=== PATIENT | female | born 1950 | race Caucasian/White ===

== ENCOUNTER 2025-01-14 22:42 | Emergency (ER) | payer MEDICARE ==
[2025-01-14] MEDS ORDERED: traMADol 50 MG Tab PO ONE (22:43)
[2025-01-14 23:36] LABS: BASOPHILS ABSOLUTE AUTO 0.1 x10-3/uL (0.0-0.1); BASOPHILS PERCENT AUTO 0.6 % (0.2-1.5); EOSINOPHILS ABSOLUTE AUTO 0.3 x10-3/uL (0.0-0.8); EOSINOPHILS PERCENT AUTO 2.5 % (0.6-8.1); HEMATOCRIT 41.5 % (34.2-48.2); HEMOGLOBIN 14.1 g/dL (11.4-15.5); LYMPHOCYTES PERCENT AUTO 16.8 % (18.4-52.1); MEAN CORPUSCULAR HEMOGLOBIN 29.3 pg (23.9-33.9); MEAN CORPUSCULAR HGB CONC 34.1 g/dL (31.9-34.8); MEAN PLATELET VOLUME 8.9 fL (7.1-12.4); MONOCYTES ABSOLUTE AUTO 1.1 x10-3/uL (0.3-1.0); MONOCYTES PERCENT AUTO 8.9 % (4.4-15.7); NEUTROPHILS ABSOLUTE AUTO 8.5 x10-3/uL (1.5-6.3); NEUTROPHILS PERCENT AUTO 71.2 % (30.8-76.2); PLATELET COUNT,PLT 222 x10(3)uL (151-488); RED BLOOD CELL COUNT 4.83 x10(6)uL (3.60-5.20); WHITE BLOOD CELL COUNT,WBC 11.9 x10-3/uL (3.0-10.3)
[2025-01-14] MEDS: Pantoprazole 40 MG Vial IVPUSH ONE (23:36)
[2025-01-14 23:41] LABS: BLOOD UREA NITROGEN,BUN 19 mg/dL (7-18); BUN/CREATININE RATIO 17.3 (9-20); CALCIUM 9.6 mg/dL (8.6-10.2); CARBON DIOXIDE,CO2 26 mmol/L (21-32); CHLORIDE,CL 103 mmol/L (100-110); CREATININE 1.1 mg/dL (0.55-1.02); ESTIMATED GFR 52 mL/min (>60); GLUCOSE RANDOM 87 mg/dL (80-116); POTASSIUM,K 4.4 mmol/L (3.5-5.3); SODIUM,NA 138 mmol/L (135-145)
[2025-01-14 23:47] LABS: A/G RATIO 0.9; ALANINE AMINOTRANSFERASE,ALT 26 U/L (12-36); ALBUMIN 3.4 g/dL (3.2-4.6); ALKALINE PHOSPHATASE 104 IU/L (56-112); ASPARTATE AMNIOTRANSFERASE,AST 25 IU/L (5-25); BILIRUBIN TOTAL 0.5 mg/dL (0.1-1.3); PROTEIN TOTAL,TP 7.2 g/dL (6.0-8.0)
[2025-01-15] MEDS: Sodium Chloride 0.9% 1,000 ML IV SCH (01:00)
[2025-01-15 01:05] LABS: C-REACTIVE PROTEIN 5.56 mg/dL (<0.50); LIPASE > 1500 U/L (16-77)
[2025-01-15] MEDS: Iopamidol 755 Mg/ML 100 ML Bottle IV ONE (01:10)
[2025-01-15] MEDS ORDERED: Naloxone 0.4 MG/ML SDV IVPUSH PRN (02:40)
[2025-01-15] MEDS: HYDROmorphone 2 MG/ML SDV IVPUSH ONE ×2 (02:45→06:20)
[2025-01-15] MEDS: Lactated Ringers 1,000 ML IV SCH (03:11)
[2025-01-15] MEDS: Sodium Chloride 0.9% 10 ML Syringe FLUSH PRN (06:21)
[2025-01-15 09:24] VITALS: BP 116/49; PULSE 79
== END 2025-01-15 08:51 ==
LOC: FB.ED 22:42
DX: K85.81 Other acute pancreatitis with uninfected necrosis (principal); K21.9 Gastro-esophageal reflux disease without esophagitis; Z79.899 Other long term (current) drug therapy; Z79.82 Long term (current) use of aspirin
CPT/HCPCS: 71046; 74177; 80053; 83690; 85025; 86140; 93010; 96361; 96374; 96375; 96376; 99285; A9270; J1171; J2470; J7030; J7120; Q9967

== ENCOUNTER 2025-03-11 09:06 | Emergency (ER) | payer MEDICARE ==
[2025-03-11] MEDS: HYDROmorphone 2 MG/ML SDV IVPUSH ONE (09:45)
[2025-03-11 09:55] LABS: BASOPHILS PERCENT AUTO 0.5 % (0.2-1.5); EOSINOPHILS ABSOLUTE AUTO 0.2 x10-3/uL (0.0-0.8); EOSINOPHILS PERCENT AUTO 2.4 % (0.6-8.1); HEMATOCRIT 29.1 % (34.2-48.2); HEMOGLOBIN 9.7 g/dL (11.4-15.5); LYMPHOCYTES ABSOLUTE AUTO 0.9 x10-3/uL (1.0-4.4); LYMPHOCYTES PERCENT AUTO 9.1 % (18.4-52.1); MEAN CORPUSCULAR HGB CONC 33.2 g/dL (31.9-34.8); MEAN CORPUSCULAR VOLUME 87.3 fL (76.7-100.5); MEAN PLATELET VOLUME 8.4 fL (7.1-12.4); MONOCYTES ABSOLUTE AUTO 0.5 x10-3/uL (0.3-1.0); NEUTROPHILS ABSOLUTE AUTO 7.8 x10-3/uL (1.5-6.3); PLATELET COUNT,PLT 403 x10(3)uL (151-488); RED BLOOD CELL COUNT 3.33 x10(6)uL (3.60-5.20); RED CELL DISTRIBUTION WIDTH 14.9 % (12.3-16.5); WHITE BLOOD CELL COUNT,WBC 9.4 x10-3/uL (3.0-10.3)
[2025-03-11 09:59] LABS: BLOOD UREA NITROGEN,BUN 16 mg/dL (7-18); CARBON DIOXIDE,CO2 30 mmol/L (21-32); CHLORIDE,CL 99 mmol/L (100-110); ESTIMATED GFR 59 mL/min (>60); GLUCOSE RANDOM 84 mg/dL (80-116); POTASSIUM,K 3.3 mmol/L (3.5-5.3); SODIUM,NA 135 mmol/L (135-145)
[2025-03-11 10:05] LABS: A/G RATIO 0.8; ALANINE AMINOTRANSFERASE,ALT 34 U/L (12-36); ALBUMIN 2.9 g/dL (3.2-4.6); ALKALINE PHOSPHATASE 130 IU/L (56-112); ASPARTATE AMNIOTRANSFERASE,AST 19 IU/L (5-25); BILIRUBIN TOTAL 0.6 mg/dL (0.1-1.3); PROTEIN TOTAL,TP 6.4 g/dL (6.0-8.0)
[2025-03-11] MEDS: Iopamidol 755 Mg/ML 100 ML Bottle IV SCH (10:34)
[2025-03-11 11:28] VITALS: BP 145/68; PULSE 88
== END 2025-03-11 11:25 | disposition home or self-care (01) ==
LOC: FB.ED 09:06
DX: C25.9 Malignant neoplasm of pancreas, unspecified (principal); Z79.899 Other long term (current) drug therapy; Z79.82 Long term (current) use of aspirin
CPT/HCPCS: 36415; 74177; 80053; 83605; 83690; 85025; 87040; 96374; 99284; 99284-25; J1171; Q9967

== ENCOUNTER 2025-04-14 10:45 | Emergency (ER) | payer MEDICARE ==
[2025-04-14 11:25] VITALS: BP 125/59; PULSE 72
== END 2025-04-14 11:45 | disposition home or self-care (01) ==
LOC: FB.ED 10:45
DX: K59.00 Constipation, unspecified (principal); Z79.82 Long term (current) use of aspirin; Z79.899 Other long term (current) drug therapy
CPT/HCPCS: 74019; 99283

== ENCOUNTER 2025-04-28 10:10 | Emergency (ER) | payer MEDICARE ==
[2025-04-28] MEDS: HYDROmorphone 2 MG/ML SDV IVPUSH ONE ×2 (10:48→11:44)
[2025-04-28 10:49] LABS: BASOPHILS ABSOLUTE AUTO 0.0 x10-3/uL (0.0-0.1); BASOPHILS PERCENT AUTO 0.4 % (0.2-1.5); EOSINOPHILS ABSOLUTE AUTO 0.0 x10-3/uL (0.0-0.8); EOSINOPHILS PERCENT AUTO 0.0 % (0.6-8.1); LYMPHOCYTES ABSOLUTE AUTO 1.0 x10-3/uL (1.0-4.4); LYMPHOCYTES PERCENT AUTO 12.2 % (18.4-52.1); MEAN PLATELET VOLUME 7.9 fL (7.1-12.4); MONOCYTES ABSOLUTE AUTO 0.8 x10-3/uL (0.3-1.0); MONOCYTES PERCENT AUTO 10.1 % (4.4-15.7); NEUTROPHILS ABSOLUTE AUTO 6.3 x10-3/uL (1.5-6.3); NEUTROPHILS PERCENT AUTO 77.3 % (30.8-76.2); PLATELET COUNT,PLT 315 x10(3)uL (151-488); RED BLOOD CELL COUNT 2.99 x10(6)uL (3.60-5.20); RED CELL DISTRIBUTION WIDTH 15.2 % (12.3-16.5); WHITE BLOOD CELL COUNT,WBC 8.1 x10-3/uL (3.0-10.3)
[2025-04-28] MEDS: Ondansetron 4 MG/2 ML SDV IVPUSH ONE (10:49)
[2025-04-28 10:58] LABS: BLOOD UREA NITROGEN,BUN 11 mg/dL (7-18); CARBON DIOXIDE,CO2 29 mmol/L (21-32); CHLORIDE,CL 99 mmol/L (100-110); CREATININE 0.8 mg/dL (0.55-1.02); EST CRCL DRUG DOSING (CG) 52.47 mL/min; ESTIMATED GFR 77 mL/min (>60); GLUCOSE RANDOM 94 mg/dL (80-116); POTASSIUM,K 3.2 mmol/L (3.5-5.3); SODIUM,NA 137 mmol/L (135-145)
[2025-04-28 11:04] LABS: A/G RATIO 0.9; ALANINE AMINOTRANSFERASE,ALT 39 U/L (12-36); ASPARTATE AMNIOTRANSFERASE,AST 33 IU/L (5-25); BILIRUBIN TOTAL 0.4 mg/dL (0.1-1.3); PROTEIN TOTAL,TP 5.8 g/dL (6.0-8.0)
[2025-04-28] MEDS: Potassium Chloride 20 MEQ Tab.ER PO ONE (12:40)
[2025-04-28 14:40] VITALS: BP 172/66
[2025-04-28 14:41] VITALS: PULSE 65
== END 2025-04-28 13:00 | disposition home or self-care (01) ==
LOC: FB.ED 10:10
DX: R10.9 Unspecified abdominal pain (principal); Z79.82 Long term (current) use of aspirin; Z79.899 Other long term (current) drug therapy
CPT/HCPCS: 36415; 80053; 83690; 85025; 93005; 93010; 96361; 96374; 96375; 96376; 99284; A9270; J1171; J2405; J7030